=== PATIENT | male | born 1985 | race Two or more races ===

== ENCOUNTER 2016-10-14 10:51 | Emergency (ER) | payer OTHER ==
[~2016-10-14] VITALS: Ht 162.6 cm; Wt 96.2 kg
--- NOTE | 2016-10-14 10:55 | NUR ---
BIBRA 79 FROM HOME C/O MIDSTERNAL CP NON RADIATING, +N/V , ASA 162MG, 2 SPRAYS NITRO GIVEN ON FIELD. PT AAOX2. REPORTS DIZZINESS. NOTED PALE AND LETHARGIC. VSS. MD AT BS FOR EVAL. SAFETY AND COMFORT MEASURES PROVIDED. WILL MONITOR.
[2016-10-14] MEDS ORDERED: ONDANSETRON HCL/PF 4 MG/2 ML VIAL ONE (10:56)
[2016-10-14] MEDS ORDERED: IV NS 0.9% 1,000 ML ONE ×2 (10:56→12:56)
[2016-10-14] MEDS ORDERED: IV SET PRIMARY PUMP SET 1 EA INFUS.SET MC ONE ×2 (10:56→12:56)
[2016-10-14] MEDS ORDERED: ONDANSETRON HCL/PF - ER 4 MG/2 ML VIAL IV ONE (11:00)
[2016-10-14] MEDS ORDERED: IV NS 0.9% 1,000 ML BAG IV ONE ×2 (11:00→13:00)
--- NOTE | 2016-10-14 11:00 | NUR ---
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 BLOOD DRAWN FOR LABS. PT MEDICATED ORDERED.
--- NOTE | 2016-10-14 11:05 | NUR ---
PT TAKEN TO CT.
[2016-10-14 11:20] LABS: BASOPHILS # (AUTO) 0.1 /CMM (0.0-0.2); BASOPHILS % (AUTO) 0.5 % (0.0-2.0); EOSINOPHILS # (AUTO) 0.1 /CMM (0.0-0.7); EOSINOPHILS % (AUTO) 0.7 % (0.0-6.0); HEMATOCRIT 44 % (39-51); HEMOGLOBIN 15.3 g/dL (13.5-17.5); LYMPHOCYTES % (AUTO) 14.6 % (20.0-44.0); MEAN CORPUSCULAR HEMOGLOBIN 30 PG (26.0-33.0); MEAN CORPUSCULAR HGB CONC 35 g/dl (31.0-36.0); MEAN CORPUSCULAR VOLUME 86 fL (80-96); MONOCYTES # (AUTO) 0.7 /CMM (0.1-1.30); NEUTROPHILS # (AUTO) 10.8 /CMM (1.8-8.9); NEUTROPHILS % (AUTO) 79.2 % (43.0-81.0); PLATELET COUNT (AUTO) 319 /CMM (150-450); RDW COEFFICIENT OF VARIATION 11.8 (11.5-15.0); RED BLOOD CELL COUNT(AUTO) 5.05 MIL/uL (4.5-6.0); WHITE BLOOD COUNT (AUTO) 13.7 K/uL (4.3-11.0)
[2016-10-14 11:34] LABS: PROTHROMBIN TIME 65.3 SECS (9.5-12.7)
[2016-10-14 11:38] LABS: TROPONIN I < 0.017 ng/mL (0.00-0.056)
[2016-10-14 11:40] LABS: INR 5.73 (0.87-1.13)
[2016-10-14 11:42] LABS: ALANINE AMINOTRANSFERASE 28 U/L (12-78); ALBUMIN 3.6 g/dL (3.4-5.0); ALKALINE PHOSPHATASE 106 U/L (46-116); ASPARTATE AMINOTRANSFERASE 22 U/L (15-37); B-TYPE NATRIURETIC PEPTIDE 14 PG/ML (0-125); BILIRUBIN,DIRECT 0.1 mg/dL (0.0-0.2); BILIRUBIN,TOTAL 0.6 mg/dL (0.2-1.0); CALCIUM, SERUM 8.9 mg/dL (8.5-10.1); CARBON DIOXIDE 30 mmol/L (21-32); CHLORIDE 98 mmol/L (98-107); CREATININE 1.1 mg/dL (0.6-1.3); POTASSIUM 4.2 mmol/L (3.5-5.1); SODIUM SERUM 134 mmol/L (136-145); TOTAL PROTEIN, SERUM 7.7 g/dL (6.4-8.2); UREA NITROGEN, BLOOD 14 mg/dL (7-18)
[2016-10-14 11:46] LABS: GLUCOSE 371 mg/dL (74-106)
[2016-10-14 12:02] LABS: ACETAMINOPHEN 0 ug/ml (10-30); ALCOHOL, BLOOD < 3 mg/dL (0-0); SALICYLATE 1.2 mg/dL (2.8-20.0)
[2016-10-14 12:09] LABS: PROTHROMBIN TIME 10.4 SECS (9.5-12.7)
[2016-10-14] MEDS ORDERED: METF10002 PO (12:12)
[2016-10-14] MEDS ORDERED: ATOR10TA PO (12:12)
[2016-10-14] MEDS ORDERED: LISI2.5T2 PO (12:12)
[2016-10-14] MEDS ORDERED: GABA-532 PO (12:12)
--- NOTE | 2016-10-14 13:00 | NUR ---
Patient is resting comfortably in bed with eyes closed. Easily aroused. VSS
--- NOTE | 2016-10-14 16:02 | NUR ---
IV removed. Catheter intact and site benign. Pressure and 4x4 applied to site. No bleeding noted.
--- NOTE | 2016-10-14 16:02 | NUR ---
Patient discharged to home in stable condition. Written and verbal after care instructions given. Patient verbalizes understanding of instruction.
[2016-10-14 16:03] VITALS: BP 99/62
== END 2016-10-14 16:03 | disposition home or self-care (01) ==
LOC: ER 10:53
DX: G93.41 Metabolic encephalopathy (principal); R73.9 Hyperglycemia, unspecified
CPT/HCPCS: 36415; 70450; 71010; 80048; 80076; 80329; 82140; 83880; 84484 ×2; 85025; 85610; 85730; 87081; 93005 ×2; 96361; 96374; 99291; A4606; G0480 ×2; J2405; J7030 ×2; Z7610